=== PATIENT | female | born 1965 | race Caucasian/White ===

== ENCOUNTER 2017-10-29 23:16 | Observation (INO) | payer SELFPAY ==
[~2017-10-29 23:16] MED LIST: ALLE4TAB7 PO; BUTA1CAP PO; DICL75TA PO; GABA300C5 PO; LEVO175T2 PO; METH750T PO; OMEP40CA2 PO; TRAM50TA PO; XANA1TAB2 PO
[2017-10-30 03:06] VITALS: BP 120/72; PULSE 86; RESP 18; TEMP 97.9; O2SAT 94
[2017-10-30] MEDS ORDERED: ACETAMINOPHEN 500 MG CPLT PO PRN (06:45)
[2017-10-30] MEDS ORDERED: ONDANSETRON HCL 4 MG/2 ML VIAL IV PUSH PRN (06:45)
[2017-10-30 07:33] VITALS: BP 140/82; PULSE 100; RESP 20; TEMP 98.2; O2SAT 94
[2017-10-30 08:09] VITALS: PULSE 96
[2017-10-30] MEDS ORDERED: traMADol HCL 50 MG TAB PO PRN (10:15)
[2017-10-30] MEDS ORDERED: PANTOPRAZOLE SOD 40 MG DELAYED RELEASE TAB PO SCH (10:15)
[2017-10-30] MEDS ORDERED: METHOCARBAMOL 500 MG TAB PO PRN (10:15)
--- NOTE | 2017-10-30 10:19 | HHI.HP ---
HPI Primary Care Physician Unknown Chief Complaint Chest pain History of Present Illness This is a 52-year-old female the presents to ED in [place] with multiple complaints but main complaint is chest pain and was subsequent transferred to the chest pain center via [facility]. States that 3 days ago she had quite a bit of diarrhea was feeling a little achy but really no other symptoms. Then yesterday around noon she began having hot flash sensations in her head and chills in her feet and then about half hour later developed a pressure in her chest. States is in the right side of her chest and it is still there. It is wax and wane but has never resolved. Worsened with certain movements. She believes she has been short of breath. She has been nauseous. She has been diaphoretic. Before I went into the room to evaluate her this morning, patient began having diarrhea again. States that she had multiple episodes of watery bowel movements for the next 30 minutes. No blood. Denies abdominal pain. States that she was told that she had a fever yesterday. 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 Denies history of CAD. Cannot recall ever having a cardiac workup. She has chronic neck and back issues and migraines and follows with a physician for those issues. Review of Systems General: Patient has had fevers, chill. Denies recent travel. Possible sick contacts at work. HEENT: Patient denies headache, sore throat, difficulty swallowing. Cardiovascular: Has the chest discomfort as mentioned above. Denies sensation of heart beating rapidly or irregularly. No syncope. Respiratory: She has been short of breath. Discomfort seems to worsen somewhat when she takes in a deep breath. Denies coughing wheezing or hemoptysis. GI: She had diarrhea 3 days ago and also again this morning while in the chest pain center. She felt nauseous yesterday. No emesis. Denies abdominal pain. Patient denies constipation, abdominal pain, and bloody stools. Musculoskeletal: Chronic neck and back pain. Patient denies joint pain or edema. Denies calf pain or edema. Neurovascular: She was having a headache yesterday as well but states she has migraines and was similar to prior migraine. Patient denies numbness, tingling , weakness in extremities. Endocrine: Denies polyuria and polydipsia. Hematologic: Denies easy bruising. Skin: Denies rash or itching. Past Family Social History Allergies: Coded Allergies: ofloxacin (Verified Allergy, Severe, Anaphylaxis, 10/29/17) Past Medical History Lung cancer and thyroid cancer and has had her thyroid removed and had left lower lobe lobectomy. Lung cancer treatment began in 1997 and had chemotherapy and radiation therapy. Chronic neck and back pain. Migraine. Denies hypertension, hyperlipidemia, diabetes, and CAD. Past Surgical History Left lower lobectomy. Thyroidectomy. Reported Medications Reported Meds & Active Scripts Active Reported Xanax (Alprazolam) 1 Mg Tab 1 Mg PO HS PRN Diclofenac Sodium DR (Diclofenac Sodium) 75 Mg Tabdr 75 Mg PO BID Levothyroxine (Levothyroxine Sodium) 175 Mcg Tab 175 Mcg PO DAILY Tramadol (Tramadol HCl) 50 Mg Tab 50 Mg PO Q6H PRN Fioricet (Rhnmkhevod-Gemgwttdidyqz-Psskibtz) 50-300-40 Mg Cap 1-2 Cap PO Q6H PRN Omeprazole 40 Mg Cap 40 Mg PO DAILY Gabapentin 300 Mg Cap 300 Mg PO HS Methocarbamol 750 Mg Tab 750 Mg PO TID Allergy (Chlorpheniramine Maleate) 4 Mg Tab 4 Mg PO Q4H PRN Active Ordered Medications Current Medications Medications (Trade) Dose Ordered Sig/Marci Route Start Time Stop Time Status Last Admin (Tylenol) 500 mg Q4H PRN PO 10/30/17 06:45 (Zofran Inj) 4 mg Q6H PRN IV PUSH 10/30/17 06:45 (Robaxin) 750 mg TID PRN PO 10/30/17 10:15 UNV Non-Formulary Medication 175 mcg DAILY PO 10/31/17 09:00 UNV Non-Formulary Medication 40 mg DAILY PO 10/30/17 10:15 UNV (Ultram) 50 mg Q6H PRN PO 10/30/17 10:15 UNV Family History States that her father age 52 of a myocardial infarction. Social History Quit smoking 1997 but smoked about 1 pack a day for 15 years prior to that. Denies alcohol or illicit drug use. She has a [employer] service. Physical Exam Vital Signs Vital Signs Date Time Temp Pulse Resp B/P (MAP) Pulse Ox O2 Delivery O2 Flow Rate FiO2 10/30/17 08:09 96 10/30/17 07:33 98.2 100 20 140/82 (101) 94 10/30/17 03:06 97.9 86 18 120/72 (88) 94 Physical Exam GENERAL: This is a well-nourished, well-developed patient, in no apparent distress. Patient speaks in clear complete sentences. Patient is pleasant. HEENT: Head is atraumatic and normocephalic. Neck is supple without lymphadenopathy and trachea is midline. No JVD or carotid bruits. CARDIOVASCULAR: Regular rate and rhythm without murmurs, gallops, or rubs. RESPIRATORY: Clear to auscultation. Breath sounds equal bilaterally. No wheezes , rales, or rhonchi. Chest wall is tender throughout entire chest wall really cannot state if it is worsening or changing the pain that she has had. States "I just feel tender and prickly all over." No use of accessory muscles. GASTROINTESTINAL: Abdomen is nontender, nondistended. Abdomen soft. No obvious pulsatile mass or bruit. No CVA tenderness. Strong femoral pulses bilaterally. Normal bowel sounds in all quadrants. MUSCULOSKELETAL: Discomfort with range of motion of her back and neck which she states is chronic. Patient is moving upper and lower extremities freely. No calf tenderness or edema, no Homans sign. Strong pulses in upper and lower extremities. NEUROLOGICAL: Patient is alert and oriented. Cranial nerves 2-12 are grossly intact. No focal deficits and speech is clear. SKIN: No rash and turgor is normal. Laboratory Laboratory Tests Test 10/30/17 06:30 Troponin I LESS THAN 0.02 Caprini VTE Risk Assessment Caprini VTE Risk Assessment: No/Low Risk (score <= 1) Caprini Risk Assessment Model Point Value = 1 Point Value = 2 Point Value = 3 Point Value = 5 Age 41-60 Minor surgery BMI > 25 kg/m2 Swollen legs Varicose veins or History of unexplained or recurrent spontaneous Oral contraceptives or hormone replacement Sepsis (< 1 month) Serious lung disease, including pneumonia (< 1 month) Abnormal pulmonary function Acute myocardial infarction Congestive heart failure (< 1 month) History of inflammatory bowel disease Medical patient at bed rest Age 61-74 Arthroscopic surgery Major open surgery (> 45 min) Laparoscopic surgery (> 45 min) Malignancy Confined to bed (> 72 hours) Immobilizing plaster cast Central venous access Age >= 75 History of VTE Family history of VTE Factor V Leiden Prothrombin [id number] Lupus anticoagulant Anticardiolipin antibodies Elevated serum homocysteine Heparin-induced thrombocytopenia Other congenital or acquired thrombophilia Stroke (< 1 month) Elective arthroplasty Hip, pelvis, or leg fracture Acute spinal cord injury (< 1 month) Prophylaxis Regimen Total Risk Factor Score Risk Level Prophylaxis Regimen 0-1 Low Early ambulation 2 Moderate Order ONE of the following: *Sequential Compression Device (SCD) *Heparin 5000 units SQ BID 3-4 Higher Order ONE of the following medications: *Heparin 5000 units SQ TID *Enoxaparin/Lovenox 40 mg SQ daily (WT < 150 kg, CrCl > 30 mL/min) *Enoxaparin/Lovenox 30 mg SQ daily (WT < 150 kg, CrCl > 10-29 mL/min) *Enoxaparin/Lovenox 30 mg SQ BID (WT < 150 kg, CrCl > 30 mL/min) AND/OR *Sequential Compression Device (SCD) 5 or more Highest Order ONE of the following medications: *Heparin 5000 units SQ TID (Preferred with Epidurals) *Enoxaparin/Lovenox 40 mg SQ daily (WT < 150 kg, CrCl > 30 mL/min) *Enoxaparin/Lovenox 30 mg SQ daily (WT < 150 kg, CrCl > 10-29 mL/min) *Enoxaparin/Lovenox 30 mg SQ BID (WT < 150 kg, CrCl > 30 mL/min) AND *Sequential Compression Device (SCD) Assessment and Plan Assessment and Plan * Chest pain: Patient had serial cardiac enzymes and EKGs for ruling out purposes. She will be seen by Dr. Rajput of cardiology in the chest pain center and will undergo a Lexiscan myocardial perfusion stress test. She will be discharged home if her stress test is nonischemic with instructions to follow -up with PCP, increased fluid intake, and return to ED for interval issues. * Chronic neck/back pain: Continue medication. * Hypothyroidism: Continue medication. Patient is stable at this time. She is agreeable to this plan. Kishore Harris Oct 30, 2017 10:19
[2017-10-30] MEDS ORDERED: SODIUM CHLOR 0.9% 1000 ML INJ 1,000 ML IV SCH (10:21)
[2017-10-30] MEDS ORDERED: REGADENOSON INJ 0.4 MG/5 ML SYR ONE (11:31)
--- NOTE | 2017-10-30 13:05 | RADRPT ---
EXAM DATE/TIME: 10/30/2017 11:31 [facility] COMPARISON: No previous studies available for comparison. INDICATIONS : Chest pain for 3 days. Angina. DOSE: 8.2 mCi Tc99m Myoview at stress. 26.8 mCi Tc99m Myoview at rest. 0.4 mg Lexiscan STRESS SYMPTOMS: None. EJECTION FRACTION: 62% MEDICAL HISTORY : Carcinoma, lung. Carcinoma, thyroid. SURGICAL HISTORY : Lobectomy. ENCOUNTER: Initial ACUITY: 3 days PAIN SCALE: 4/10 LOCATION: Bilateral chest TECHNIQUE: The patient underwent pharmacologic stress with infusion of prescribed dose. Continuous ECG tracing was monitored during stress. Gated SPECT imaging was performed after stress and conventional SPECT i maging was performed at rest. The examination was performed on a SPECT/CT scanner, both attenuation and non-corrected datasets were reviewed. FINDINGS: DISTRIBUTION: The maximum perfused segment at stress is in the septal wall. PERFUSION STUDY: There is a small fixed inferolateral and apical perfusion abnormality without evidence of redistribut ion. GATED STUDY: There is intact wall motion and thickening without hypokinetic or dyskinetic segments. CONCLUSION: Small size, mild-moderate severity fixed inferolateral lateral and apical perfusion abnormality witho ut evidence of redistribution. RISK CATEGORY: Low (<1% Annual Mortality Rate) Elvin Abrams MD on October 30, 2017 at 12:59 Board Certified Radiologist. This report was verified electronically.
--- NOTE | 2017-10-30 13:16 | TR ---
Date Performed: 10/30/2017 Time Performed: 12:00:04 DOCTOR: Joel Rajput DRUG LIST: CLINICAL HISTORY: REASON FOR TEST: REASON FOR ENDING: OBSERVATION: CONCLUSION: COMMENTS: Lexiscan stress test was performed under standard four minute protocol. Radionuclide was injected one minute prior to ending the test. No electrocardiographic abormalities were present t o suggest ischemia. Nuclear imaging and interpretation are pending.
--- NOTE | 2017-10-30 13:17 | HHI.DCPOC ---
Discharge Care Plan Diagnosis: (1) Chest pain, atypical Goals to Promote Your Health * To prevent worsening of your condition and complications * To maintain your health at the optimal level Directions to Meet Your Goals Take your medications as prescribed Follow your dietary instruction Follow activity as directed Keep your appointments as scheduled Take your immunizations and boosters as scheduled If your symptoms worsen call your PCP, if no PCP go to Urgent Care Center or Emergency Room Smoking is Dangerous to Your Health. Avoid second hand smoke Call the 24-hour hour crisis hotline for domestic abuse at Kishore Harris Oct 30, 2017 13:16
--- NOTE | 2017-10-30 13:21 | EKG ---
Date Performed: 10/30/2017 Time Performed: 07:09:14 PTAGE: 52 years EKG: Sinus rhythm MODERATE VOLTAGE CRITERIA FOR LVH, CONSIDER NORMAL VARIANT BORDERLINE ECG PREVIOUS TRACING : 10/29/2017 22.02 Since previous tracing, no significant change noted DOCTOR: Joel Rajput Interpretating Date/Time 10/30/2017 13:21:43
[2017-10-31] MEDS ORDERED: LEVOTHYROXINE SODIUM 75 MCG TAB PO SCH (06:00)
[2017-10-31] MEDS ORDERED: LEVOTHYROXINE SODIUM 100 MCG TAB PO SCH (06:00)
== END 2017-10-30 18:27 | disposition home or self-care (01) ==
LOC: NEDDLT 10-30 01:08 → NEPHCDU 10-30 01:18
DX: R07.89 Other chest pain (principal); E03.9 Hypothyroidism, unspecified; G43.909 Migraine, unspecified, not intractable, without status migrainosus; M54.2 Cervicalgia; G89.29 Other chronic pain; R94.31 Abnormal electrocardiogram [ECG] [EKG]; Z85.118 Personal history of other malignant neoplasm of bronchus and lung; Z85.850 Personal history of malignant neoplasm of thyroid; Z92.21 Personal history of antineoplastic chemotherapy; Z92.3 Personal history of irradiation; Z87.891 Personal history of nicotine dependence; Z82.49 Family history of ischemic heart disease and other diseases of the circulatory system
CPT/HCPCS: 70450; 71046; 71275; 78452; 80053; 80307; 81001; 82550; 82552; 83735; 83880; 84484; 85025; 85379; 85610; 85730; 87804; 93005; 93017; 96360; 96374; 99285; A9502; G0378; J1885; J2785; J7030; Q9967